=== PATIENT | male | born 1950 | race Hispanic/Latino ===

== ENCOUNTER 2016-12-12 09:40 | Inpatient (IN) | payer OTHER, MEDICARE ==
[2016-12-12 09:45] VITALS: BMI 20.1
--- NOTE | 2016-12-12 10:41 | ED PDOC ---
Arrival/HPI <AmyTerellSushant - Last Filed: 12/12/16 12:04> - General Historian: Patient, Spouse <Michelle Montana PA-C - Last Filed: 12/12/16 12:14> - General Chief Complaint: Cough, Cold, Congestion Time Seen by Provider: 12/12/16 10:01 - History of Present Illness Narrative History of Present Illness (Text): 12/12/16 10:35 Patient with no significant past medical history, reports 3 day h/o dry cough, nausea, decrease in appetite, and overall not feeling well. Otherwise: (-) chest pain, (-) diaphoresis, (-) dyspnea, (-) dizziness, (+) recent travel to 2 weeks ago, (-) rash, (-) sore throat, (-) headache, (-) syncope, (-) abdominal pain, (-) vomiting/diarrhea, (-) urinary symptoms, (+) sick contacts - was ill last month with URI, (-) calf swelling/pain, (-) neuro deficits. Patient adds h/o normal stress test 4 years ago. PMD not on staff (Michelle Montana PA-C) Past Medical History - Provider Review Nursing Documentation Reviewed: Yes - Travel History Have you recently traveled outside [place] w/in the past 3 mons?: Yes - Past History Past History: No Previous - Cardiac Hx Cardiac Disorders: No - Pulmonary Hx Respiratory Disorders: No - Neurological Hx Neurological Disorder: No - HEENT Hx HEENT Disorder: No - Renal Hx Renal Disorder: No - Endocrine/Metabolic Hx Endocrine Disorders: No - Hematological/Oncological Hx Blood Disorders: No - Integumentary Hx Dermatological Disorder: No - Musculoskeletal/Rheumatological Hx Musculoskeletal Disorders: No - Genitourinary/Gynecological Hx Genitourinary Disorders: No - Psychiatric Hx Psychophysiologic Disorder: No Hx Substance Use: No - Surgical History Hx Appendectomy: Yes - Anesthesia Hx Anesthesia: Yes Hx Anesthesia Reactions: No <Michelle Montana PA-C - Last Filed: 12/12/16 12:14> Family/Social History - Physician Review Nursing Documentation Reviewed: Yes Family/Social History: No Known Family HX Smoking Status: Never Smoked Hx Alcohol Use: Yes Frequency of alcohol use: Socially Hx Substance Use: No <Michelle Montana PA-C. - Last Filed: 12/12/16 12:14> Allergies/Home Meds <Sushant Reyes - Last Filed: 12/12/16 12:04> <Michelle Montana PA-C - Last Filed: 12/12/16 12:14> Allergies/Adverse Reactions: Allergies No Known Allergies Allergy (Verified 12/12/16 09:44) Home Medications: Home Meds Medication Instructions Recorded Confirmed Aspirin [Lo-Dose Aspirin EC] 81 mg PO DAILY 12/12/16 12/12/16 Review of Systems - Review of Systems Constitutional: Normal, Fatigue. absent: Weight Change, Fevers, Night Sweats Eyes: Normal. absent: Vision Changes, Photophobia ENT: Normal. absent: Hearing Changes, Tinnitus, Rhinorrhea Respiratory: Normal, Cough. absent: SOB, Sputum, Wheezing Cardiovascular: Normal. absent: Chest Pain, Palpitations, Edema Gastrointestinal: Normal. absent: Abdominal Pain, Stool Changes, Appetite Changes Genitourinary Male: Normal. absent: Dysuria, Frequency, Hematuria Musculoskeletal: Normal. absent: Arthralgias, Back Pain, Neck Pain Skin: Normal. absent: Rash, Pruritis, Skin Lesions Neurological: Normal. absent: Headache, Dizziness, Focal Weakness, Disequilibrium <Michelle Montana PA-C - Last Filed: 12/12/16 12:14> Physical Exam <Sushant Reyes - Last Filed: 12/12/16 12:04> <Michelle Montana PA-C - Last Filed: 12/12/16 12:14> - Physical Exam Narrative Physical Exam (Text): 12/12/16 10:42 GENERAL APPEARANCE: Patient is awake, alert, oriented x 3, in no acute distress. Patient is speaking in full sentences, no respiratory distress, breathing is easy and unlabored. SKIN: Warm, dry; (-) cyanosis. EYES: (-) conjunctival pallor. ENMT: Mucous membranes dry. NECK: (-) tenderness, (-) stiffness, (-) lymphadenopathy, (-) JVD. CHEST AND RESPIRATORY: (-) rash, (-) chest wall tenderness. Lungs: (-) rales , (-) rhonchi, (-) wheezes, (-) rub; breath sounds equal bilaterally. HEART AND CARDIOVASCULAR: (+) tachycardic, (-) irregularity; (-) murmur, (-) gallop, (-) rub. ABDOMEN AND GI: Soft; (-) distention, (-) tenderness, (-) palpable pulsatile mass. EXTREMITIES: (-) deformity; (-) edema, (-) calf tenderness. (+) distal pulses. NEURO AND PSYCH: Mental status as above. Cranial nerves grossly intact; strength symmetric. (Michelle Montana PA-C) Vital Signs Temp Pulse Resp BP Pulse Ox 12/12/16 09:49 98.7 F 118 H 19 114/75 92 L Medical Decision Making <Sushant Reyes - Last Filed: 12/12/16 12:04> <Michelle Montana PA-C - Last Filed: 12/12/16 12:14> ED Course and Treatment: 12/12/16 12:04 Discussed with who will admit to 's service. (Sushant Reyes) 12/12/16 10:43 66 yo M otherwise healthy presents with 3 day history of cough, nausea, decreased appetite and overall not feeling well. Patient is noted to be tachycardic with hypoxia. Admits to recent travel 2 weeks ago, rule out PE, consider pneumonia versus viral illness. Plan: -- Labs -- IV fluids -- Urinalysis -- EKG -- CXR -- O2 -- Reassess and disposition EKG: ST at 118 bpm, with RBBB, as read by TORREY CXR: (+) RML infiltrate, as read by TORREY and ER MD Labs reviewed, WBC is 17, bands 18, lactic acid nl, trop (-), BNP (+), Ddimer (+ ). Patient resting comfortably in bed in no respiratory distress, breathing is easy and unlabored. Diagnostic results d/w the patient, notified of dx of pneumonia, rocephin and zithromax IV ordered. Arrangements made to admit the patient. Patient and his spouse agree with current plan of care and inpatient admission. (Michelle Montana PA-C) - Lab Interpretations Lab Results: 12/12/16 10:30 12/12/16 10:30 Lab Results 12/12/16 11:35: Lactic Acid 1.8 12/12/16 10:30: Sodium 134, Potassium 4.3, Chloride 98, Carbon Dioxide 26, Anion Gap 14, BUN 49 H, Creatinine 1.7 H, Est GFR ( Amer) 49, Est GFR ( Non-Af Amer) 41, Random Glucose 144 H, Calcium 9.3, Total Bilirubin 1.8 H, AST 39, ALT 29, Alkaline Phosphatase 68, Lactate Dehydrogenase 549, Total Creatine Kinase 130, Troponin I < 0.01, NT-Pro-B Natriuret Pep 1160 H, Total Protein 6.9 , Albumin 3.6, Globulin 3.2, Albumin/Globulin Ratio 1.1 12/12/16 10:30: WBC 17.9 H, RBC 4.57, Hgb 14.7, Hct 40.6 L, MCV 88.8, MCH 32.2, MCHC 36.2, RDW 13.7, Plt Count 142, MPV 11.5 H, Neutrophils % (Manual) 69, Band Neutrophils % 18 H*, Lymphocytes % (Manual) 5 L, Monocytes % (Manual) 4, Metamyelocytes % 4 12/12/16 10:30: PT 12.2 H, INR 1.13 H, APTT 36.4 H, D-Dimer, Quantitative 1.72 H - RAD Interpretation Radiology Orders: 12/12/16 10:23 CHEST TWO VIEWS (PA/LAT) [RAD] Stat - Medication Orders Current Medication Orders: Azithromycin (Zithromax 500mg In Ns) 500 mg in 250 mls @ 167 mls/hr IVPB STAT STA PRN Reason: Protocol Stop: 12/12/16 12:54 Last Admin: 12/12/16 12:08 Dose: 167 mls/hr Discontinued Medications Sodium Chloride (Sodium Chloride 0.9%) 500 mls @ 500 mls/hr IV .Q1H STA Stop: 12/12/16 11:44 Last Admin: 12/12/16 10:53 Dose: 500 mls/hr Ceftriaxone Sodium (Rocephin 1 Gram Ivpb) 1 gm in 100 mls @ 200 mls/hr IVPB STAT STA PRN Reason: Protocol Stop: 12/12/16 11:53 Last Admin: 12/12/16 11:36 Dose: 200 mls/hr - PA / DE ICER INSTALLER / Resident Statement SHAWN has examined the patient and agrees with the treatment plan. <Sushant Reyes - Last Filed: 12/12/16 12:04> - PA / DE ICER INSTALLER / Resident Statement SHAWN has reviewed & agrees with the documentation as recorded. <Michelle Montana PA-C - Last Filed: 12/12/16 12:14> Disposition/Present on Arrival <Sushant Reyes - Last Filed: 12/12/16 12:04> - Present on Arrival Any Indicators Present on Arrival: No History of DVT/PE: No History of Uncontrolled Diabetes: No Urinary Catheter: No History of Decub. Ulcer: No History Surgical Site Infection Following: None - Disposition Have Diagnosis and Disposition been Completed?: No Disposition Time: 11:15 Patient Plan: Admission <Michelle Montana PA-C - Last Filed: 12/12/16 12:14> - Disposition Diagnosis: Pneumonia Disposition: HOSPITALIZED Patient Problems: Current Active Problems Problem Status Onset Pneumonia Acute Condition: STABLE Referrals: Bari Wilkins MD, PhD [Primary Care Provider] - Follow up with primary
[2016-12-12] MEDS ORDERED: Sodium Chloride 0.9% 500 ML IV STA (10:45)
[2016-12-12 11:02] LABS: HEMATOCRIT 40.6 % (42.0-52.0); MEAN CELL VOLUME 88.8 fL (80.0-105.0); MEAN CORPUSCULAR HEMOGLOBIN 32.2 pg (25.0-35.0); MEAN CORPUSCULAR HGB CONC 36.2 g/dl (31.0-37.0); MEAN PLATELET VOLUME 11.5 fl (7.0-11.0); PLATELET COUNT 142 10^3/uL (120.0-450.0); RED CELL DISTRIBUTION WIDTH 13.7 % (11.5-14.5); WHITE BLOOD COUNT 17.9 10^3/ul (4.5-11.0)
[2016-12-12 11:09] LABS: ADD MANUAL DIFF? YES
[2016-12-12] MEDS ORDERED: cefTRIAXone 1 gm 1 GM/100 ML BAG IVPB STA (11:24)
[2016-12-12] MEDS ORDERED: Azithromycin 500MG/NS 250ml 500 MG/250 ML BAG IVPB STA (11:25)
[2016-12-12 11:28] LABS: ALB/GLOB RATIO 1.1 (1.1-1.8); ALKALINE PHOSPHATASE 68 U/L (38-133); ALT/SGPT 29 U/L (7-56); AST/SGOT 39 U/L (15-59); BILIRUBIN,TOTAL 1.8 mg/dL (0.2-1.3); BLOOD UREA NITROGEN 49 mg/dL (7-21); CALCIUM 9.3 mg/dL (8.4-10.5); CARBON DIOXIDE 26 mmol/L (21-33); CHLORIDE 98 mmol/L (98-107); GFR AFRICAN-AMERICAN 49; GLUCOSE,RANDOM 144 mg/dL (70-110); POTASSIUM 4.3 mmol/L (3.6-5.0); SODIUM 134 mmol/L (132-148); TOTAL PROTEIN 6.9 g/dL (5.8-8.3)
[2016-12-12 11:41] LABS: TROPONIN I < 0.01 ng/mL
[2016-12-12 11:42] LABS: BAND 18 % (0-2); METAMYELOCYTE 4 %; NEUTROPHIL 69 % (50.0-70.0)
[2016-12-12 12:02] LABS: INR 1.13 (0.93-1.08); PARTIAL THROMBOPLASTIN TIME 36.4 Seconds (23.7-30.8)
[2016-12-12 12:06] LABS: D DIMER 1.72 mg/L FEU (0-0.50)
--- NOTE | 2016-12-12 13:40 | RAD ---
HISTORY: tachycardia COMPARISON: No prior. TECHNIQUE: Chest PA and lateral FINDINGS: LUNGS: Right middle lobe infiltrate. Probable right lower lobe infiltrate as well. PLEURA: No significant pleural effusion identified. No pneumothorax apparent. CARDIOVASCULAR: Normal. OSSEOUS STRUCTURES: No significant abnormalities. VISUALIZED UPPER ABDOMEN: Normal. OTHER FINDINGS: None. IMPRESSION: Right middle lobe and probable right lower lobe pulmonary infiltrates.
[2016-12-12 15:38] LABS: URINE BILIRUBIN NEGATIVE (NEGATIVE); URINE BLOOD MODERATE (NEGATIVE); URINE GLUCOSE (UA) NEGATIVE (NEGATIVE); URINE KETONE NEGATIVE (NEGATIVE); URINE LEUKOCYTE ESTERASE NEGATIVE Leu/uL (NEGATIVE); URINE PROTEIN 100 mg/dL (<30 mg/dL)
[2016-12-12 15:42] LABS: URINE APPEARANCE SL CLOUDY (CLEAR); URINE COLOR YELLOW (YELLOW)
[2016-12-12 16:01] LABS: URINE BACTERIA TRACE (NEG); URINE RBC 0 - 2 /hpf (0-2)
--- NOTE | 2016-12-13 01:32 | CARD ---
APPROVED REPORT EKG Measurement Heart [id number] <Conclusion> Sinus tachycardia Right bundle branch block Left anterior fascicular block Bifascicular block Minimal voltage criteria for LVH, may be normal variant Abnormal ECG
[2016-12-13 06:19] LABS: HEMATOCRIT 38.5 % (42.0-52.0); MEAN CELL VOLUME 88.7 fL (80.0-105.0); MEAN CORPUSCULAR HEMOGLOBIN 31.3 pg (25.0-35.0); MEAN CORPUSCULAR HGB CONC 35.3 g/dl (31.0-37.0); MEAN PLATELET VOLUME 11.3 fl (7.0-11.0)
--- NOTE | 2016-12-13 06:26 | CP.PCM.PN ---
Subjective - Date & Time of Evaluation Date of Evaluation: 12/12/16 Time of Evaluation: 22:15 - Subjective Subjective: called by nurse pt has tachycardia on monitor.pt is admitted for pneomonia . has rectal temp of 102 . pt is given tylenol no other symptoms. Objective - Vital Signs/Intake and Output Vital Signs (last 24 hours): Temp Pulse Resp BP Pulse Ox 101.3 F H 139 H 20 97/69 L 94 L 12/13/16 00:01 12/13/16 00:01 12/13/16 00:01 12/13/16 00:01 12/13/16 00:01 Intake and Output: 12/12/16 12/13/16 18:59 06:59 Intake Total 960 Output Total 350 Balance 610 - Medications Medications: Current Medications Acetaminophen (Tylenol 325mg Tab) 650 mg PO Q4H PRN PRN Reason: Pain, Mild (1-3) Last Admin: 12/12/16 21:13 Dose: 650 mg Aspirin (Ecotrin) 81 mg PO DAILY MARIA LUZ Azithromycin (Zithromax) 250 mg PO DAILY MARIA LUZ PRN Reason: Protocol Ceftriaxone Sodium (Rocephin 1 Gram Ivpb) 1 gm in 100 mls @ 100 mls/hr IVPB DAILY MARIA LUZ PRN Reason: Protocol - Labs Labs: PT 12.2 Seconds (9.9-11.8) H 12/12/16 10:30 INR 1.13 (0.93-1.08) H 12/12/16 10:30 APTT 36.4 Seconds (23.7-30.8) H 12/12/16 10:30 - Constitutional Appears: No Acute Distress - Head Exam Head Exam: NORMOCEPHALIC - Eye Exam Eye Exam: Normal appearance Pupil Exam: PERRL - ENT Exam ENT Exam: Mucous Membranes Moist - Neck Exam Neck Exam: Full ROM - Respiratory Exam Respiratory Exam: Rales Additional comments: pt has rales on rt side. - Cardiovascular Exam Cardiovascular Exam: Tachycardia, RRR, +S1, +S2 - Rectal Exam Rectal Exam: Deferred - Extremities Exam Extremities Exam: Full ROM - Neurological Exam Neurological Exam: Alert, Awake, CN II-XII Intact, Oriented x3 - Psychiatric Exam Psychiatric exam: Normal Affect - Skin Skin Exam: Dry, Warm Assessment and Plan - Assessment and Plan (Free Text) Assessment: sinus tachy cardia secondry to fever . pneumonia rt side. Plan: pt is on antibiotics , pt improved after tylenol.
[2016-12-13] MEDS ORDERED: Sodium Chloride 0.9% 500 ML IV STA (06:48)
[2016-12-13 06:57] LABS: ALKALINE PHOSPHATASE 77 U/L (38-133); ALT/SGPT 30 U/L (7-56); AST/SGOT 39 U/L (15-59); BILIRUBIN,TOTAL 1.4 mg/dL (0.2-1.3); BLOOD UREA NITROGEN 42 mg/dL (7-21); CARBON DIOXIDE 28 mmol/L (21-33); CHLORIDE 101 mmol/L (95-110); GFR AFRICAN-AMERICAN > 60; GLUCOSE,RANDOM 93 mg/dL (70-110); POTASSIUM 3.3 mmol/L (3.6-5.0); SODIUM 138 mmol/L (132-148); TOTAL PROTEIN 6.5 g/dL (5.8-8.3)
[2016-12-13 07:17] LABS: ARTERIAL BLOOD GAS HCO3 23.8 mmol/L (21-28); ARTERIAL BLOOD GAS O2 CAPACITY 17.8 mL/dl (16-24); ARTERIAL BLOOD GAS O2 CONTENT 17.5 ML/dl (15-23); ARTERIAL BLOOD GAS PH 7.48 (7.35-7.45); ARTERIAL BLOOD HGB O2 SAT 95.6 % (95.0-98.0); CARBOXYHEMOGLOBIN 1.8 % (0.5-1.5); HHB 1.8 % (0-5); METHEMOGLOBIN 0.8 % (0.0-3.0)
[2016-12-13 07:51] LABS: T4 7.4 ug/dL (5.5-11.0)
[2016-12-13 08:05] LABS: THYROID STIMULATING HORMONE 1.59 mIU/mL (0.46-4.68)
[2016-12-13] MEDS: cefTRIAXone 1 gm 1 GM/100 ML BAG IVPB SCH (10:28)
[2016-12-13] MEDS: Sodium Chloride 0.9% 1,000 ML IV SCH (10:29)
[2016-12-13 12:21] LABS: CHOLESTEROL 109 mg/dL (130-200)
--- NOTE | 2016-12-13 12:36 | HP ---
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 He states he and his visited [place] almost a month ago and both have been congested, but he was not feeling well for the last 3-4 days. He started to have fever, chills and started to have cough and congestion. He w ent to [facility] Urgent care, where when they checked him out, he was found to be having tachycardia with hypoxia, so he was directed to come to Emergency Room for further evaluation. He denies any chest p ain. However, he has generalized weakness, cough and congestion with productive cough. Denies any n ausea or vomiting, no abdominal pain. PAST MEDICAL HISTORY: Significant for borderline hypertension. He states he had a stress test done many years ago and was found to be unremarkable. He never had a history of pneumonia in the past. ALLERGIES: He is not allergic to any medication. MEDICATION AT HOME: He is on aspirin 81 daily. SOCIAL HISTORY: He is . He used to be a heavy smoker, almost 1 pack a day for 15 years, but he quit 30 years ago. Denies alcohol use, only drinks socially. PHYSICAL EXAMINATION: GENERAL: He is awake and alert, communicative. VITAL SIGNS: He is afebrile, pulse 64, respirations 20, blood pressure 116/72. LUNGS: Bilateral lower and middle lung soft crackles. HEART: S1, S2 audible, irregular, tachycardic. ABDOMEN: Soft, nontender, no rebound, no guarding. NEUROLOGIC: The patient is awake and alert, communicative. Moves all extremities. LABORATORY EXAMINATION: WBCs 11, hemoglobin 13.6, hematocrit 38.5, platelets of 128. Chemistry: So dium 138, potassium 3.3, chloride 101, CO2 28, BUN 42, creatinine 1.2, blood sugar of 93. Total bili 1.4. BNP 1160. Urinalysis shows moderate blood and his blood cultures, 2 bottles are positive for gram-positive cocci. Urine cultures are negative. X-ray of the chest shows bilateral infiltrate, ri ght middle lobe and right lower lobe infiltrate. ASSESSMENT: 1. Bilateral pneumonia, community acquired. 2. New onset atrial fibrillation. 3. Tachycardia. 4. Leukocytosis, improving. 5. Renal insufficiency, improving. PLAN: Currently, he has been started on metoprolol. He was given 1 dose of 25 around 10:00. His po tassium is being supplemented. He is on Rocephin. He is getting vancomycin and Zithromax. Will ord er for echocardiogram. Will monitor CBC, CMP, lipid profile and thyroid profile in a.m. Cardiology consult by Dr. Pendleton has been requested. Discussed with patient. He seemed to agree with the plan. Will reevaluate patient in a.m. Shaggy Harris MD cc: [phone] TT: 12/13/2016 12:35:47 en
--- NOTE | 2016-12-13 14:22 | CP.PCM.CON ---
History of Present Illness - History of Present Illness History of Present Illness: 66 year old male with PMH of HTN came in to [facility] complaining of dry cough associated with anorexia, nausea and malaise for the past 3-4 days. He was also found to have fever in the ED. He was recently just in the [place] about 2 weeks ago but does not recall any specific ill contacts there, although her was apparently sick with a probable viral upper respiratory illness. He denies sore throat, no vomiting, no chest pain, no SOB, no headache or dizziness, no diarrhea, no hematuria, no dysuria. In the ED, CXR was done which showed right middle and lower lobe infiltrates and his blood cx is now showing gram positive cocci in pairs. Infectious Diseases consult is requested to further evaluate and manage. Review of Systems - Review of Systems All systems: reviewed and no additional remarkable complaints except (as per HPI ) Past Patient History - Past Social History Smoking Status: Never Smoked - CARDIAC Hx Cardiac Disorders: No - PULMONARY Hx Respiratory Disorders: No - NEUROLOGICAL Hx Neurological Disorder: No - HEENT Hx HEENT Problems: No - RENAL Hx Chronic Kidney Disease: No - ENDOCRINE/METABOLIC Hx Endocrine Disorders: No - HEMATOLOGICAL/ONCOLOGICAL Hx Blood Disorders: No - INTEGUMENTARY Hx Dermatological Problems: No - MUSCULOSKELETAL/RHEUMATOLOGICAL Hx Falls: No - GENITOURINARY/GYNECOLOGICAL Hx Genitourinary Disorders: No - PSYCHIATRIC Hx Psychophysiologic Disorder: No - SURGICAL HISTORY Hx Appendectomy: Yes - ANESTHESIA Hx Anesthesia: Yes Hx Anesthesia Reactions: No Meds Allergies/Adverse Reactions: Allergies Allergy/AdvReac Type Severity Reaction Status Date / Time No Known Allergies Allergy Verified 12/12/16 09:44 - Medications Medications: Current Medications Acetaminophen (Tylenol 325mg Tab) 650 mg PO Q4H PRN PRN Reason: Pain, Mild (1-3) Last Admin: 12/12/16 21:13 Dose: 650 mg Aspirin (Ecotrin) 81 mg PO DAILY MARIA LUZ Last Admin: 12/13/16 10:27 Dose: 81 mg Azithromycin (Zithromax) 250 mg PO DAILY MARIA LUZ PRN Reason: Protocol Last Admin: 12/13/16 10:27 Dose: 250 mg Ceftriaxone Sodium (Rocephin 1 Gram Ivpb) 1 gm in 100 mls @ 100 mls/hr IVPB DAILY MARIA LUZ PRN Reason: Protocol Last Admin: 12/13/16 10:28 Dose: 100 mls/hr Sodium Chloride (Sodium Chloride 0.9%) 1,000 mls @ 100 mls/hr IV .Q10H [facility] Last Admin: 12/13/16 10:29 Dose: 100 mls/hr Potassium Chloride (Potassium Chloride 10 Meq/100 Ml) 10 meq in 100 mls @ 100 mls/hr IVPB Q2H [facility] Stop: 12/13/16 13:59 Vancomycin HCl (Vancomycin 1gm) 250 mls @ 167 mls/hr IVPB Q12H [facility] PRN Reason: Protocol Stop: 12/20/16 11:31 Metoprolol Tartrate (Lopressor) 25 mg PO BID [facility] Last Admin: 12/13/16 10:28 Dose: 25 mg Physical Exam - Constitutional Appears: Non-toxic, No Acute Distress - Head Exam Head Exam: NORMAL INSPECTION - ENT Exam ENT Exam: Mucous Membranes Moist - Neck Exam Neck exam: Negative for: Lymphadenopathy, Meningismus - Respiratory Exam Respiratory Exam: Decreased Breath Sounds, Rales (crackles on the right side) - Cardiovascular Exam Cardiovascular Exam: +S1, +S2 - GI/Abdominal Exam GI & Abdominal Exam: Soft. absent: Tenderness Results - Vital Signs Recent Vital Signs: Last Vital Signs Temp 98.3 F 12/13/16 06:00 Pulse 135 H 12/13/16 10:28 Resp 20 12/13/16 06:00 BP 116/72 12/13/16 10:28 Pulse Ox 96 12/13/16 06:00 - Labs Result Diagrams: 12/13/16 06:00 12/13/16 06:00 Labs: Laboratory Results - last 24 hr 12/12/16 12/13/16 12/13/16 13:02 06:00 06:00 WBC 11.0 D RBC 4.34 Hgb 13.6 L Hct 38.5 L MCV 88.7 MCH 31.3 MCHC 35.3 RDW 14.0 Plt Count 128 MPV 11.3 H pCO2 pO2 HCO3 ABG pH ABG Total CO2 ABG O2 Saturation ABG O2 Content ABG Base Excess ABG Hemoglobin ABG Carboxyhemoglobin POC ABG HHb (Measured) ABG Methemoglobin ABG O2 Capacity Hgb O2 Saturation FiO2 Sodium 138 Potassium 3.3 L Chloride 101 Carbon Dioxide 28 Anion Gap 12 BUN 42 H Creatinine 1.2 Est GFR ( Amer) > 60 Est GFR (Non-Af Amer) > 60 Random Glucose 93 Calcium 9.0 Total Bilirubin 1.4 H AST 39 ALT 30 Alkaline Phosphatase 77 Total Protein 6.5 Albumin 3.2 Globulin 3.3 Albumin/Globulin Ratio 1.0 L Thyroxine (T4) TSH 3rd Generation Urine Color Yellow Urine Appearance Sl cloudy Urine pH 6.0 Ur Specific Parker 1.025 Urine Protein 100 H Urine Glucose (UA) Negative Urine Ketones Negative Urine Blood Moderate H Urine Nitrate Negative Urine Bilirubin Negative Urine Urobilinogen 2.0 H Ur Leukocyte Esterase Negative Urine RBC 0 - 2 Urine WBC 1 - 3 Ur Epithelial Cells 1 - 3 Urine Bacteria Trace Hyaline Casts 0 - 2 12/13/16 12/13/16 07:00 07:10 WBC RBC Hgb Hct MCV MCH MCHC RDW Plt Count MPV pCO2 32 L pO2 76.0 L HCO3 23.8 ABG pH 7.48 H ABG Total CO2 24.8 ABG O2 Saturation 98.2 H ABG O2 Content 17.5 ABG Base Excess 0.9 ABG Hemoglobin 13.0 ABG Carboxyhemoglobin 1.8 H POC ABG HHb (Measured) 1.8 ABG Methemoglobin 0.8 ABG O2 Capacity 17.8 Hgb O2 Saturation 95.6 FiO2 30.0 Sodium Potassium Chloride Carbon Dioxide Anion Gap BUN Creatinine Est GFR ( Amer) Est GFR (Non-Af Amer) Random Glucose Calcium Total Bilirubin AST ALT Alkaline Phosphatase Total Protein Albumin Globulin Albumin/Globulin Ratio Thyroxine (T4) 7.4 TSH 3rd Generation 1.59 Urine Color Urine Appearance Urine pH Ur Specific Parker Urine Protein Urine Glucose (UA) Urine Ketones Urine Blood Urine Nitrate Urine Bilirubin Urine Urobilinogen Ur Leukocyte Esterase Urine RBC Urine WBC Ur Epithelial Cells Urine Bacteria Hyaline Casts Assessment & Plan - Assessment and Plan (Free Text) Plan: Assessment Severe sepsis with acute renal failure (improving) due to right middle and lower lobe community-acquired pneumonia with associated gram positive cocci in pairs bacteremia HTN Plan patient on Rocephin and Zithromax - will also add Vancomycin and will monitor renal function; will follow up identification and sensitivities of the gram positive cocci in the blood; will repeat blood cx will monitor clinical response
[2016-12-13] MEDS: Vancomycin 1gm in NS 250ml 1 GM/250 ML BAG IVPB SCH ×2 (15:20→21:05)
--- NOTE | 2016-12-13 19:54 | CARD ---
APPROVED REPORT EXAM: Two-dimensional and M-mode echocardiogram with Doppler and color Doppler. INDICATION LV Function:SystolicDiastolic 2D DIMENSIONS Left Atrium (2D)3.7 (1.6-4.0cm)IVSd1.0 (0.7-1.1cm) LVDd4.9 (3.9-5.9cm)PWd1.0 (0.7-1.1cm) LVDs4.0 (2.5-4.0cm)FS (%) 19.3 % LVEF (%)39.6 (>50%) M-Mode DIMENSIONS Aortic Root2.90 (2.2-3.7cm)Aortic Cusp Exc.2.00 (1.5-2.0cm) Aortic Valve AoV Peak Cvbtukfg428.0cm/Jose Peak GR.9mmHg Mitral Valve E/A ratio0.0 TDI E/Lateral E'0.0E/Medial E'0.0 Tricuspid Valve TR Peak [id number] [id number] Peak Gr.39mmHg [id number] LEFT VENTRICLE The left ventricle is normal size. There is normal left ventricular wall thickness. The systolic function is mildly impaired.EF-40-45% There is mild global hypokinesis of the left ventricle.( A fib) A fib No left ventricle thrombus noted on this study. There is no ventricular septal defect visualized. There is no left ventricular aneurysm. There is no mass noted in the left ventricle. RIGHT VENTRICLE The right ventricle is mildly dilated. There is normal right ventricular wall thickness. Systolic function is mildly reduced. ATRIA The left atrium size is normal. The right atrium size is normal. The interatrial septum is intact with no evidence for an atrial septal defect. AORTIC VALVE The aortic valve is calcified but opens well. There is trace to mild aortic regurgitation. There is no aortic valvular stenosis. There is no aortic valvular vegetation. MITRAL VALVE The mitral valve is thickened but opens well. Mitral regurgitation is mild to moderate. There is no mitral valve stenosis. There is no evidence of mitral valve prolapse. TRICUSPID VALVE The tricuspid valve leaflets are thickened , but open well. There is moderate tricuspid regurgitation.RVSP-49 mmof hg. There is no tricuspid valve stenosis. There is no tricuspid valve prolapse or vegetation. PULMONIC VALVE The pulmonic valve is mildly thickened. There is mild pulmonic valvular regurgitation. There is no pulmonic valvular stenosis. GREAT VESSELS The aortic root is normal in size. The ascending aorta is normal in size. The pulmonary artery is normal. The IVC is normal in size and collapses >50% with inspiration. PERICARDIAL EFFUSION There is no pleural effusion. There is no pericardial effusion. <Conclusion> The left ventricle is normal size. There is normal left ventricular wall thickness. The systolic function is mildly impaired.EF-40-45% There is mild global hypokinesis of the left ventricle.( A fib) A fib There is trace to mild aortic regurgitation. Mitral regurgitation is mild to moderate. There is moderate tricuspid regurgitation.RVSP-49 mmof hg. The IVC is normal in size and collapses >50% with inspiration. There is no pericardial effusion. No Vegetation or thrombus noted.
[2016-12-13] MEDS ORDERED: Metoprolol 1 mg/ml Inj IVP ONE (19:58)
[2016-12-13] MEDS: Enoxaparin 80 mg Syringe SC SCH (21:04)
[2016-12-13] MEDS: diltiaZEM IVPB 100mg in NS 100 ML IV PRN (21:05)
[2016-12-14] MEDS: Sodium Chloride 0.9% 1,000 ML IV SCH (05:53)
[2016-12-14] MEDS: diltiaZEM IVPB 100mg in NS 100 ML IV PRN (05:53)
--- NOTE | 2016-12-14 08:02 | CON ---
DATE: 12/13/2016 REASON FOR CONSULTATION AND FOLLOWUP: AFib, admitted with pneumonia. BRIEF CLINICAL HISTORY: This is a 66-year-old male with a past medical history significant for arrhy thmia. Told that the patient gets paroxysmal in question) ____. Being followed by his PMD outside a nd had a stress test 5-6 years ago after being referred; found to be told negative. Had echo on ' Day and told was negative, but he was told that his heart sometimes goes fast, and did not pres cribe any medication. Recently visited [place] and came back, and found to have mild shortness o f breath so went to the [facility] where he was found to be hypoxemic and tachycardic, so patient was sent to the ER, admitted with possible pneumonia. The patient was in sinus tachycardi a with a burst at 50, so cardiology consult was called. The patient denies any chest pain, shortness of breath, any palpitation. PAST MEDICAL HISTORY: Significant for arrhythmia, paroxysmal atrial fibrillation. MEDICATIONS: Not on any medication. SOCIAL HISTORY: Quit smoking 30 years ago. Denies any history of alcohol abuse, though drinks [employer]. PAST SURGICAL HISTORY: Significant for appendectomy at the age of 13. CURRENT MEDICATIONS: Only taking aspirin. REVIEW OF SYSTEMS: As per HPI. PHYSICAL EXAMINATION: VITAL SIGNS: Temperature afebrile, heart rate 106, blood pressure 105/66. HEENT: PERRLA. Extraocular muscles intact. NECK: Supple. No carotid bruits. No thyromegaly. CHEST: Clear to auscultation. HEART: S1, S2 regular. ABDOMEN: Soft. EXTREMITIES: Clubbing and cyanosis negative. BLOOD WORKUP: As follows: WBC 11.0, hemoglobin 13.6, hematocrit 38.5, platelet count 128. Chemistr y shows sodium 130, potassium 3.6, chloride 101, carbon dioxide 28, anion gap of 12, BUN 42, creatini ne 1.2. TSH 1.59. Triglycerides 323, cholesterol 109, LDL less than 30, HDL 14. IMPRESSION: Paroxysmal atrial fibrillation, history of known arrhythmia, history of ex-tobacco abuse , admitted with pneumonia. RECOMMENDATIONS: Start low dose beta anthony and give p.r.n. verapamil. Echo to assess LV function. A stress test 5 years ago was negative. Now patient admitted with pneumonia. Suggest a stress petros t later as an outpatient to see the effect of stress on rhythm. Interim, will start low dose beta bl ocker and get echo to assess LV function. We will follow with you. Thank you, Dr. Harris, for providing the opportunity in taking care of this patient. Will get hemog lobin A1c also. Jesús Pendleton MD cc: [id number] TT: 12/13/2016 17:47:39 Confirmation # [id number] Dictation # [id number]
[2016-12-14 08:23] LABS: ALKALINE PHOSPHATASE 113 U/L (38-133); ALT/SGPT 38 U/L (7-56); AST/SGOT 62 U/L (15-59); BILIRUBIN,TOTAL 1.4 mg/dL (0.2-1.3); BLOOD UREA NITROGEN 29 mg/dL (7-21); CARBON DIOXIDE 25 mmol/L (21-33); CHLORIDE 105 mmol/L (98-107); GFR AFRICAN-AMERICAN > 60; GLUCOSE,RANDOM 93 mg/dL (70-110); MAGNESIUM 2.1 mg/dL (1.7-2.2); PHOSPHOROUS 2.8 mg/dL (2.5-4.5); POTASSIUM 4.1 mmol/L (3.6-5.0); SODIUM 138 mmol/L (132-148); TOTAL PROTEIN 6.5 g/dL (5.8-8.3)
[2016-12-14 08:30] LABS: FREE T4 1.47 ng/dL (0.78-2.19)
[2016-12-14 08:44] LABS: THYROID STIMULATING HORMONE 1.68 mIU/mL (0.46-4.68)
[2016-12-14] MEDS: Enoxaparin 80 mg Syringe SC SCH (09:19)
[2016-12-14] MEDS: cefTRIAXone 1 gm 1 GM/100 ML BAG IVPB SCH (09:31)
[2016-12-14] MEDS: Vancomycin 1gm in NS 250ml 1 GM/250 ML BAG IVPB SCH ×2 (10:36→22:53)
[2016-12-14] MEDS ORDERED: Digoxin 500 mcg/2ml (0.5 mg/2ml) Inj IVP ONE ×2 (11:12→17:00)
--- NOTE | 2016-12-14 11:53 | PN ---
DATE: 12/14/2016 REASON FOR CONSULTATION AND FOLLOWUP: Atrial fibrillation, apparently is paroxysmal, admitted with farhana bryant. BRIEF CLINICAL HISTORY: A 66-year-old male with past medical history significant for arrhythmia, zi d that the patient gets paroxysmal, being told by head of science, but not on any anticoagulation, being followed by an outside head of science and also his stress test 5-6 years ago was negative. Recent ech o on the was told everything was negative, admitted yesterday with pneumonia, also found to be in paroxysmal atrial fibrillation. Last event of A-fib with rapid ventricular rate, started o n IV Cardizem. The patient underwent echo that shows decreased LV function, mitral regurg, tricuspid regurg, aortic regurgitation, ejection fraction 40-45%, but patient denies any dyspnea on exertion o r chest pain on exertion. Denies any history of alcohol abuse, says he is very active. No complaint of chest pain in the past. Denies any history of recent flu-like symptoms, but he said that he rece ntly visited [place] a month ago and was feeling jazmine there. PHYSICAL EXAMINATION: VITAL SIGNS: Temperature afebrile, heart rate of 120, blood pressure 119/65. HEENT: PERRLA. Extraocular muscles intact. NECK: Supple. No carotid bruits. No thyromegaly. CHEST: Clear to auscultation. HEART: S1, S2 irregular. ABDOMEN: Soft. EXTREMITIES: Clubbing and cyanosis negative. LABORATORY DATA: Blood workup as follows: WBC 11, hemoglobin 13.7, hematocrit 38.5, platelet count 128. Chemistry shows sodium 130, potassium 4.2, chloride 105, carbon dioxide 25, anion gap of 12, BU N 25, creatinine 0.6. TSH 1.59, triglycerides 325, cholesterol 109, LDL 30, HDL 14. IMPRESSION: Right middle lobe and probable right lower lobe pneumonia. No definite history of coron jo artery disease in the past, history of a stress test 5 years ago according to paces normal. Rece nt echo was normal, but history of arrhythmia, was not on any medication. Mitral regurgitation, tric uspid regurgitation. By echo, ejection fraction 45-50%, trace to mild aortic regurgitation, moderate tricuspid regurgitation, mild to moderate mitral regurgitation, right ventricular systolic pressure of 49. Atrial fibrillation with rapid ventricular rate, on Cardizem, started Lovenox last night. RECOMMENDATION: Continue Cardizem. Add low dose beta anthony. We will give 2 doses of digoxin to c ontrol the rate. When the rate is controlled and stabilized hemodynamically, consider cardiac cathet erization, probably in a day or 2, or Tuesday. Discussed with the patient. Continue broad s pectrum antibiotic. The patient is still short of breath secondary to A-fib as well as underlying pn eumonia. We will repeat the chest x-ray, PA and lateral, in the morning. We will follow with you. Will keep a negative fluid balance. Further recommendation depending on hospital course. We will fo llow with you. Thank you, Dr. Harris, for providing us the opportunity in taking care of the patient. Discussed wi th the , discussed with the patient himself. Jseús Pendleton MD cc: [id number] TT: 12/14/2016 11:52:24 Confirmation # [id number] Dictation # [id number]
--- NOTE | 2016-12-14 12:40 | CARD ---
APPROVED REPORT EKG Measurement Heart [id number] <Conclusion> Atrial fibrillation with rapid ventricular response Right bundle branch block Left anterior fascicular block Bifascicular block Minimal voltage criteria for LVH, may be normal variant Abnormal ECG
[2016-12-14 18:03] VITALS: PULSE 131
--- NOTE | 2016-12-14 18:59 | CP.PCM.PN ---
Subjective - Date & Time of Evaluation Date of Evaluation: 12/14/16 Time of Evaluation: 10:50 - Subjective Subjective: Patient is feeling better, no fevers overnight, breathing better, no cough currently. No diarrhea, no nausea. Objective - Vital Signs/Intake and Output Vital Signs (last 24 hours): Temp Pulse Resp BP Pulse Ox 97.8 F 104 H 20 125/58 L 98 12/14/16 12:00 12/14/16 18:00 12/14/16 12:00 12/14/16 18:00 12/14/16 06:00 Intake and Output: 12/14/16 12/14/16 06:59 18:59 Intake Total 1960 680 Output Total 600 600 Balance 1360 80 - Medications Medications: Current Medications Acetaminophen (Tylenol 325mg Tab) 650 mg PO Q4H PRN PRN Reason: Pain, Mild (1-3) Last Admin: 12/12/16 21:13 Dose: 650 mg Aspirin (Ecotrin) 81 mg PO DAILY [facility] Last Admin: 12/14/16 09:25 Dose: 81 mg Azithromycin (Zithromax) 250 mg PO DAILY [facility] PRN Reason: Protocol Last Admin: 12/14/16 09:25 Dose: 250 mg Diltiazem HCl (Cardizem) 60 mg PO TID [facility] Last Admin: 12/14/16 18:00 Dose: 60 mg Enoxaparin Sodium (Lovenox) 70 mg SC Q12H [facility] PRN Reason: Protocol Last Admin: 12/14/16 09:19 Dose: 70 mg Ceftriaxone Sodium (Rocephin 1 Gram Ivpb) 1 gm in 100 mls @ 100 mls/hr IVPB DAILY [facility] PRN Reason: Protocol Last Admin: 12/14/16 09:31 Dose: 100 mls/hr Sodium Chloride (Sodium Chloride 0.9%) 1,000 mls @ 100 mls/hr IV .Q10H [facility] Last Admin: 12/14/16 05:53 Dose: 100 mls/hr Vancomycin HCl (Vancomycin 1gm) 1 gm in 250 mls @ 167 mls/hr IVPB Q12H [facility] PRN Reason: Protocol Stop: 12/20/16 11:31 Last Admin: 12/14/16 10:36 Dose: 167 mls/hr Metoprolol Tartrate (Lopressor) 25 mg PO BID [facility] Last Admin: 12/14/16 17:59 Dose: 25 mg - Labs Labs: 12/13/16 06:00 12/14/16 06:05 PT 12.2 Seconds (9.9-11.8) H 12/12/16 10:30 INR 1.13 (0.93-1.08) H 12/12/16 10:30 APTT 36.4 Seconds (23.7-30.8) H 12/12/16 10:30 - Constitutional Appears: Non-toxic, No Acute Distress - Head Exam Head Exam: NORMAL INSPECTION - Neck Exam Neck Exam: absent: Lymphadenopathy, Meningismus - Respiratory Exam Respiratory Exam: Decreased Breath Sounds - Cardiovascular Exam Cardiovascular Exam: +S1, +S2 - GI/Abdominal Exam GI & Abdominal Exam: Soft. absent: Tenderness Assessment and Plan - Assessment and Plan (Free Text) Plan: Assessment Severe sepsis with acute renal failure (improving) due to right middle and lower lobe community-acquired pneumonia with associated Strep bacteremia HTN Plan patient on Rocephin and Zithromax and Vancomycin day 2 and will continue to monitor renal function; will follow up sensitivities of the Strep in the blood; follow up repeat blood cx will continue to monitor clinical response
--- NOTE | 2016-12-14 21:29 | PN ---
DATE: 12/14/2016 The patient is 66 years old, seen and examined, sitting in chair, comfortable. He had episode of tac hycardia. Otherwise, he denies any cough and congestion. No fever, no chills. PHYSICAL EXAMINATION: VITAL SIGNS: He is afebrile, pulse 89, pulse 69 earlier and after it was 96, respirations 20, blood pressure 110/66. LUNGS: Bilateral fair air flow, decreased at bases. HEART: S1, S2 audible. Irregular rate control. ABDOMEN: Soft, nontender, no rebound, no guarding. NEUROLOGIC: The patient is awake and alert, communicative, ambulatory. LABORATORY DATA: Blood cultures positive for Streptococcus species. Repeat cultures are negative. ASSESSMENT: 1. New onset of atrial fibrillation. 2. Community-acquired pneumonia. 3. Hypertension. 4. Leukocytosis, improving. 5. Renal insufficiency, improved. 6. Positive procalcitonin. PLAN: The patient is holding his blood pressure. We will discontinue his IV Diltiazem. We will con tinue him on Cardizem 60 t.i.d. He is on digoxin. He is getting metoprolol. He is on Lovenox. We will continue him on Rocephin and Zithromax. We will reevaluate the patient in a.m. Shaggy Harris MD cc: [phone] TT: 12/14/2016 21:29:18 Confirmation # [id number] Dictation # [id number]
[2016-12-15] MEDS: Enoxaparin 80 mg Syringe SC SCH ×3 (01:01→21:39)
[2016-12-15] MEDS: Sodium Chloride 0.9% 1,000 ML IV SCH (01:04)
[2016-12-15 07:45] LABS: ADD MANUAL DIFF? NO
[2016-12-15 08:04] LABS: BASO # 0.02 K/mm3 (0.0-2.0); BASO % 0.3 % (0.0-3.0); EOS # 0.1 (0.0-0.7); EOS % 1.2 % (1.5-5.0); GRAN # 5.76 (1.4-6.5); HEMATOCRIT 36.5 % (42.0-52.0); LYMPH # 0.9 (1.2-3.4); LYMPH % 11.9 % (22.0-35.0); MEAN CORPUSCULAR HEMOGLOBIN 31.3 pg (25.0-35.0); MEAN CORPUSCULAR HGB CONC 35.6 g/dl (31.0-37.0); MEAN PLATELET VOLUME 11.3 fl (7.0-11.0); MONO # 0.9 (0.1-0.6); MONO % 11.6 % (1.0-6.0); PLATELET COUNT 158 10^3/uL (120.0-450.0); RED CELL DISTRIBUTION WIDTH 13.9 % (11.5-14.5); WHITE BLOOD COUNT 7.7 10^3/ul (4.5-11.0)
[2016-12-15 08:07] LABS: ALKALINE PHOSPHATASE 150 U/L (38-133); ALT/SGPT 52 U/L (7-56); AST/SGOT 60 U/L (15-59); BILIRUBIN,TOTAL 1.1 mg/dL (0.2-1.3); BLOOD UREA NITROGEN 22 mg/dL (7-21); CALCIUM 8.8 mg/dL (8.4-10.5); CARBON DIOXIDE 28 mmol/L (21-33); CHLORIDE 104 mmol/L (98-107); GFR AFRICAN-AMERICAN > 60; GLUCOSE,RANDOM 92 mg/dL (70-110); MAGNESIUM 1.9 mg/dL (1.7-2.2); POTASSIUM 3.2 mmol/L (3.6-5.0); SODIUM 139 mmol/L (132-148); TOTAL PROTEIN 6.4 g/dL (5.8-8.3)
[2016-12-15] MEDS ORDERED: Potassium Chloride 20 mEq ER Tab PO ONE ×2 (09:03→13:00)
--- NOTE | 2016-12-15 10:34 | PN ---
DATE: 12/15/2016 REASON FOR CONSULTATION AND FOLLOWUP: Atrial fibrillation, apparently paroxysmal, admitted with schuyler mcgee, CHF. BRIEF CLINICAL HISTORY: A 66-year-old male with past medical history significant for arrhythmia, zi d that the patient gets paroxysmal by his asset management lead, but never been on anticoagulation or any medi cation to control the heart rate since 5-6 years ago. Stress test 5-6 years ago was negative, and re cent echo on , was told everything was okay, admitted at this time with pneumonia, found to be in paroxysmal atrial fibrillation. The patient underwent echocardiography that showed decrease d LV function, as well as regurgitation of the valve noted. The patient denies any history of alcohol abuse in the past. Denies any history of flu-like symptoms , but says he recently visited [place] a month ago and was feeling sick at that time. No history of alcohol abuse. Ejection fraction by echo was 40-45%. The patient yesterday appeared congested given 1 dose of Lasix, went multiple times to the bathroom a nd feels a lot better. Was on IV Cardizem - changed to p.o. Cardizem, but still the heart rate is 11 2 though the patient got 2 doses of digoxin as well. PHYSICAL EXAMINATION: VITAL SIGNS: Temperature afebrile, heart rate 112, blood pressure 142/82. HEENT: PERRLA. Extraocular muscles intact. NECK: Supple. No carotid bruits. No thyromegaly. CHEST: Clear to auscultation. HEART: S1, S2 regular. ABDOMEN: Soft. EXTREMITIES: Clubbing and cyanosis negative. LABORATORY DATA: Blood workup as follows: WBC 7.7, hemoglobin 13, hematocrit 36.5, platelet count 1 58. Chemistry shows sodium 130, potassium 3.____, chloride 101, carbon dioxide 28, anion gap of 12, BUN 42, creatinine 1.2. IMPRESSION: Community-acquired pneumonia, congestive heart failure secondary to systolic dysfunction , ejection fraction 40-45%, hypokalemia, atrial fibrillation with rapid rate off Cardizem, on p.o. Ca rdizem. Repeat echo because the patient had on outside. Repeat echo was done yesterda y that showed ejection fraction of 40-45%, global hypokinesis of left ventricle, atrial fibrillation, trace to mild aortic regurgitation, mild to moderate mitral regurgitation, moderate tricuspid regurg itation, right ventricular systolic pressure of 49. Apparently, it looks like new decreased left jamir tricular function because the patient claims that on [place] Day he had echo and was told negative. Congestive heart failure, multifactorial, secondary to cardiomyopathy, systolic dysfunction as well as atrial fibrillation with moderate to high rate, pneumonia. RECOMMENDATION: Repeat chest x-ray. We will change Cardizem to verapamil to control better rate bec ause of COPD, supplement potassium. We will start low with the Plavix, aspirin, discontinue Lovenox after today's night dose, and cardiac catheterization tomorrow. Keep n.p.o. after midnight for a car diac catheterization tomorrow. Discussed with the patient, discussed with the - agreed. We tobin l proceed for cardiac catheterization. Now the patient can lie flat. The patient had initial admission, renal insufficiency as well, which has now improved. So we will do, when the renal function improves, and we will discontinue IV fluid now. Thank you, Dr. Harris, for the opportunity in taking care of the patient. We will restart fluid sandra orrow at 7:00 a.m., preparation for cardiac catheterization, now for discontinuing IV fluid to preven t going into congestive heart failure. ____ function with IV fluid, renal function improved, and it is optimum time to do the cardiac catheterization tomorrow. Now the patient to lie flat on the cath stable. Jesús Pendleton MD cc:Shaggy Harris MD [phone] TT: 12/15/2016 10:33:23 Confirmation # [id number] Dictation # [id number] patricia
[2016-12-15] MEDS: cefTRIAXone 1 gm 1 GM/100 ML BAG IVPB SCH (13:27)
--- NOTE | 2016-12-15 15:08 | RAD ---
HISTORY: F/U pneumonia and compare COMPARISON: 12/12/2016 TECHNIQUE: Chest PA and lateral FINDINGS: LUNGS: There is slight improvement in the dense alveolar infiltrate in the right middle lobe. The infiltrate is best appreciated on the lateral film PLEURA: No significant pleural effusion identified. No pneumothorax apparent. CARDIOVASCULAR: Normal. OSSEOUS STRUCTURES: No significant abnormalities. VISUALIZED UPPER ABDOMEN: Normal. OTHER FINDINGS: None. IMPRESSION: Slight improvement in right middle lobe pneumonia
--- NOTE | 2016-12-15 18:45 | PN ---
DATE: 12/15/2016 SUBJECTIVE: The patient is a 66-year-old, seen and examined, sitting in chair, still having intermit tent AFib and went into rapid rate. No cough, no congestion, no fever, no chills. PHYSICAL EXAMINATION: VITAL SIGNS: He is afebrile, pulse 94, respirations 20, blood pressure 138/74. LUNGS: Bilateral fair air flow, decreased at bases. HEART: S1, S2 audible. ABDOMEN: Soft, nontender, no rebound, no guarding. NEUROLOGIC: He is awake and alert, communicative. LABORATORY: WBC 7.7, hemoglobin 13, hematocrit 36, platelets 158. Chemistry: Sodium 139, potassium 3.2, chloride 104, CO2 of 28, BUN 22, creatinine 0.8, blood sugar of 92. His AST is 60, alkaline ph osphatase is 150. His blood cultures grew Streptococcus pneumoniae, sensitive to Rocephin. ASSESSMENT: 1. Streptococcus pneumoniae bacteremia. 2. Bilateral pneumonia. 3. Atrial fibrillation. 4. Hypertension. PLAN: The patient is currently on Lovenox. His Eliquis has been discontinued. His potassium is sup plemented. He is on verapamil 80 mg 3 times a day. He is on digoxin. He is on metoprolol 25 b.i.d. He was given a loading dose of Plavix 300 daily. Scheduled for cardiac cath in a.m. Shaggy Harris MD cc: [phone] TT: 12/15/2016 18:44:40 Confirmation # [id number] Dictation # [id number] mukesh
--- NOTE | 2016-12-15 22:33 | CP.PCM.PN ---
Subjective - Date & Time of Evaluation Date of Evaluation: 12/15/16 Time of Evaluation: 11:15 - Subjective Subjective: Developed some redness on the back after Vancomycin infusion. Feeling better, afebrile, not in distress. Objective - Vital Signs/Intake and Output Vital Signs (last 24 hours): Temp Pulse Resp BP Pulse Ox 98 F 96 H 20 124/79 98 12/15/16 19:10 12/15/16 19:10 12/15/16 19:10 12/15/16 19:10 12/14/16 06:00 Intake and Output: 12/15/16 12/16/16 18:59 06:59 Intake Total 1040 360 Output Total 450 Balance 590 360 - Medications Medications: Current Medications Acetaminophen (Tylenol 325mg Tab) 650 mg PO Q4H PRN PRN Reason: Pain, Mild (1-3) Last Admin: 12/12/16 21:13 Dose: 650 mg Aspirin (Ecotrin) 81 mg PO DAILY [facility] Last Admin: 12/15/16 09:11 Dose: 81 mg Azithromycin (Zithromax) 250 mg PO DAILY [facility] PRN Reason: Protocol Last Admin: 12/15/16 13:26 Dose: 250 mg Clopidogrel Bisulfate (Plavix) 75 mg PO DAILY [facility] Ceftriaxone Sodium (Rocephin 1 Gram Ivpb) 1 gm in 100 mls @ 100 mls/hr IVPB DAILY [facility] PRN Reason: Protocol Last Admin: 12/15/16 13:27 Dose: 100 mls/hr Sodium Chloride (Sodium Chloride 0.9%) 1,000 mls @ 100 mls/hr IV .Q10H [facility] Metoprolol Tartrate (Lopressor) 25 mg PO BID [facility] Last Admin: 12/15/16 18:56 Dose: 25 mg Verapamil HCl (Calan Tab) 80 mg PO TID [facility] Last Admin: 12/15/16 18:56 Dose: 80 mg - Labs Labs: 12/15/16 07:00 12/15/16 07:00 PT 12.2 Seconds (9.9-11.8) H 12/12/16 10:30 INR 1.13 (0.93-1.08) H 12/12/16 10:30 APTT 36.4 Seconds (23.7-30.8) H 12/12/16 10:30 - Constitutional Appears: Non-toxic, No Acute Distress - Head Exam Head Exam: NORMAL INSPECTION - ENT Exam ENT Exam: Mucous Membranes Moist - Neck Exam Neck Exam: absent: Lymphadenopathy, Meningismus - Respiratory Exam Respiratory Exam: Decreased Breath Sounds - Cardiovascular Exam Cardiovascular Exam: +S1, +S2 - GI/Abdominal Exam GI & Abdominal Exam: Soft. absent: Tenderness Assessment and Plan - Assessment and Plan (Free Text) Plan: Assessment Severe sepsis with acute renal failure (improving) due to right middle and lower lobe community-acquired pneumonia with associated Strep pneumoniae bacteremia HTN Plan patient on Rocephin and Zithromax and d/c Vancomycin day 3; repeat blood cx negative will continue to monitor clinically
[2016-12-16 06:37] VITALS: O2SAT 99
[2016-12-16 06:41] LABS: ADD MANUAL DIFF? NO
[2016-12-16 06:48] LABS: BASO # 0.04 K/mm3 (0.0-2.0); BASO % 0.6 % (0.0-3.0); EOS # 0.1 (0.0-0.7); EOS % 1.7 % (1.5-5.0); GRAN # 4.22 (1.4-6.5); GRAN % 66.8 % (50.0-68.0); HEMATOCRIT 34.8 % (42.0-52.0); LYMPH # 1.1 (1.2-3.4); LYMPH % 17.9 % (22.0-35.0); MEAN CELL VOLUME 89.2 fL (80.0-105.0); MEAN CORPUSCULAR HEMOGLOBIN 30.8 pg (25.0-35.0); MEAN CORPUSCULAR HGB CONC 34.5 g/dl (31.0-37.0); MEAN PLATELET VOLUME 10.4 fl (7.0-11.0); MONO # 0.8 (0.1-0.6); PLATELET COUNT 157 10^3/uL (120.0-450.0); RED CELL DISTRIBUTION WIDTH 14.2 % (11.5-14.5); WHITE BLOOD COUNT 6.3 10^3/ul (4.5-11.0)
[2016-12-16] MEDS ORDERED: Sodium Chloride 0.9% 1,000 ML IV SCH (07:00)
[2016-12-16 07:40] LABS: BLOOD UREA NITROGEN 23 mg/dL (7-21); CALCIUM 8.9 mg/dL (8.4-10.5); CARBON DIOXIDE 28 mmol/L (21-33); CHLORIDE 104 mmol/L (98-107); GFR AFRICAN-AMERICAN > 60; GLUCOSE,RANDOM 91 mg/dL (70-110); POTASSIUM 4.5 mmol/L (3.6-5.0); SODIUM 137 mmol/L (132-148)
[2016-12-16] MEDS ORDERED: Lidocaine 2% Inj (20ml) ONE (09:28)
[2016-12-16] MEDS ORDERED: Midazolam 2 MG/2 ML VIAL ONE (09:29)
[2016-12-16] MEDS ORDERED: Nitroglycerin 50mg in D5W 50 MG/250 ML BOTTLE IV ONE (09:30)
[2016-12-16] MEDS ORDERED: Iodixanol 320 MG/ML 200 ML BOTTLE IV ONE (09:30)
[2016-12-16] MEDS ORDERED: Bacitracin 500 Units/gm Oint Foilpak UD TOP ONE (10:41)
[2016-12-16] MEDS: cefTRIAXone 1 gm 1 GM/100 ML BAG IVPB SCH (12:02)
[2016-12-16] MEDS ORDERED: Bacitracin 500 Units/gm Oint Foilpak UD ONE (13:40)
[2016-12-16 14:16] VITALS: TEMP 98.2
[2016-12-16 14:23] VITALS: RESP 19
[2016-12-16 14:34] VITALS: BP 131/72; PULSE 92
--- NOTE | 2016-12-16 18:19 | CARD ---
APPROVED REPORT EKG Measurement Heart [id number] <Conclusion> Normal sinus rhythm Right bundle branch block Left anterior fascicular block Bifascicular block Minimal voltage criteria for LVH, may be normal variant Abnormal ECG
--- NOTE | 2016-12-16 18:34 | CARD ---
APPROVED REPORT Procedure(s) performed: Left Heart Catheterization HISTORY The patient is a 66 year-old male with a history of : New onset of SOB and decrease LV Fx, He had Echo in and was told normal admitted with SOB, pneumonia, MR TR and Decreased LV Fx (new) since previous Echo, and New onset of A Fib.. INDICATION The indication(s) include : arrhythmia, dyspnea. CASE TECHNIQUE The patient was brought electively to the Cardiac Catheterization Laboratory in a fasting state and was prepped and draped in a sterile manner. The left wrist was infiltrated with 2% Lidocaine subcutaneous anesthesia. A 6 Fr Glidesheath (Radial) sheath was inserted into the left radial vein without difficulty. Coronary angiography was performed using coronary diagnostic catheters. The left coronary system was accessed and visualized with a Diagnostic ,5 Fr JL 4 catheter. The right coronary system was accessed and visualized with a Diagnostic ,6 Fr AL 1 catheter. The left ventricle was accessed and visualized with a 5 Fr Pigtail 145 (Angled) catheter. Left ventricular/Aortic Valve gradient assessed on pullback. Left ventriculogram was performed in DAILEY projection. Closure device was deployed with a Fr TR Band (Large) without any complications. The patient tolerated the procedure well and there were no complications associated with the procedure. Vessel Analysis The patient's coronary anatomy is left dominant. The left main coronary artery is a large size vessel without significant stenosis. The left main bifurcates to the left anterior descending and circumflex. The left anterior descending artery is a medium size vessel with intimal irregularities and without significant stenosis. The first diagonal branch is a medium size vessel with diffuse calcification noted throughout this vessel and without significant stenosis. There is a 50-60% stenosis in the ostial segment. The circumflex artery is a large size vessel with intimal irregularities and without significant stenosis. The first obtuse marginal branch is a medium size vessel without significant stenosis. The second obtuse marginal branch is a medium size vessel with diffuse calcification noted throughout this vessel and without significant stenosis. The left posterior descending artery is a medium size vessel without significant stenosis. The right coronary artery is a medium size vessel without significant stenosis, non Dominant. Left Ventricle The left ventricle is Borderline in size with Mildly decreased contractility. Non-Ischemic cardiomyopathy. The left ventricular ejection fraction is estimated to be 45%. The left ventricular end diastolic pressure is 15 mmHg. There was no gradient across the aortic valve upon pullback. Conclusion Non-obstruvtive CAD, Lilited to D1 ostial 50-60%. Mildly decreased LV Fx. EF-45%, EDP-15. Recommendations Aggressive Medical TherapyCardiac Risk Reduction Program Monitor LV FX and MR/TR By Echo in 6 months to a year. Continue Verapamil, Beta anthony to control Heart rate and Eliquis for 2-4 weeks if remains in NSR (Hx of PAF). cc; DR. Harris.
--- NOTE | 2016-12-16 19:30 | PN ---
DATE: 12/16/2016 REASON FOR CONSULTATION AND FOLLOWUP: Paroxysmal atrial fibrillation, admitted with pneumonia, CHF, status post cardiac catheterization, nonobstructive coronary artery disease, decreased LV function, e jection fraction 45%. BRIEF CLINICAL HISTORY: A 66-year-old male with past medical history significant for arrhythmia, zi d paroxysmal. Not on anticoagulation, not on any medication, admitted with pneumonia, stress test 5-6 years ago, normal. Recent echo done ____ normal. This time, patient admitted with pneumonia and ne w onset CHF, atrial fibrillation, mitral regurgitation, tricuspid regurgitation, underwent cardiac ca theterization that revealed nonobstructive coronary artery disease, limited to diagonal 1. Ejection fraction 45%. History of recent visit to [place]. Cardiac catheterization was done to rule out coronary artery disease versus nonischemic cardiomyopathy. PHYSICAL EXAMINATION: VITAL SIGNS: Temperature afebrile, heart rate ____, blood pressure 132/72. HEENT: PERRLA. Extraocular muscles intact. NECK: Supple. No carotid bruit. No thyromegaly. CHEST: Clear to auscultation. HEART: S1, S2 regular. ABDOMEN: Soft. EXTREMITIES: Clubbing and cyanosis negative. LABORATORY DATA: WBC 6.3, hemoglobin 12, hematocrit 34.8, platelet count 157. Chemistry shows sodiu m 137, potassium ____, chloride 104, carbon dioxide 28, anion gap of 10, BUN 23, creatinine 0.8. IMPRESSION: New onset congestive heart failure, atrial fibrillation converted to normal sinus, pneum onia, mitral and tricuspid regurgitation, status post-cardiac catheterization, nonobstructive coronar y artery disease. RECOMMENDATION: Continue Eliquis for 4 weeks. Continue verapamil. Continue metoprolol. Discontinue aspirin. Discontinue Plavix. Will reassess LV function in 3-6 months. Continue Eliquis ____ sinus for 4 weeks, then discontinue. Will follow with you. Thank you, Dr. Harris, for providing the opportunity in taking care of the patient. Jesús Pendleton MD cc: [id number] TT: 12/16/2016 19:29:35 Confirmation # [id number] Dictation # [id number]
--- NOTE | 2016-12-17 09:31 | DS ---
The patient is a 66-year-old, seen and examined, lying in bed, anxious to go home. Had cardiac cath done, was found to have nonocclusive coronaries. Otherwise, he is not in any acute shortness of madan th, no nausea, vomiting, no diarrhea. PHYSICAL EXAMINATION: VITAL SIGNS: He is afebrile, pulse 92, respirations 19, blood pressure 131/72. LUNGS: Bilateral fair airflow, no rhonchi or crackle. HEART: S1, S2 audible. ABDOMEN: Soft, nontender, no rebound, no guarding. NEUROLOGIC: He is awake and alert, communicative. Moves all extremities. LABORATORY EXAMINATION: WBCs 6.3, hemoglobin 12, hematocrit 34, platelet of 157. Chemistry: Sodium 137, potassium 4.5, chloride 104, CO2 28, BUN 23, creatinine 0.8, blood sugar of 91. LFTs are withi n normal limits. He had x-ray chest done that showed improvement in right middle lobe pneumonia. ASSESSMENT: 1. Community-acquired bilateral lower lobe pneumonia and right middle lobe pneumonia. 2. New onset of atrial fibrillation. 3. Hypertension. 4. Hyperlipidemia. PLAN: The patient is cleared by cardiology. He is being discharged home on Eliquis 5 mg twice a day and he will be maintained on verapamil 240 daily. He is on Vantin 200 twice a day, Zithromax 250 da anmol for another 7 days. He will be followed as outpatient in my office and Dr. Pendleton's office. Shaggy Harris MD cc: [id number] TT: 12/17/2016 09:30:40 en
== END 2016-12-16 18:17 | disposition home or self-care (01) | DRG 871 ==
LOC: ED 09:40 → ERH 12:15 → 2RNO 13:18 → 2RSO 12-16 10:56
PROVIDERS: ADMIT Internal Medicine; ATTEND Internal Medicine
PROC: 4A023N7 Measurement of Cardiac Sampling and Pressure, Left Heart, Percutaneous Approach (ICD-10-PCS; principal; 2016-12-16)
PROC: B211YZZ Fluoroscopy of Multiple Coronary Arteries using Other Contrast (ICD-10-PCS; 2016-12-16)
PROC: B215YZZ Fluoroscopy of Left Heart using Other Contrast (ICD-10-PCS; 2016-12-16)
DX: A40.3 Sepsis due to Streptococcus pneumoniae (principal); R65.20 Severe sepsis without septic shock; N17.9 Acute kidney failure, unspecified; J18.9 Pneumonia, unspecified organism; I11.0 Hypertensive heart disease with heart failure; I42.9 Cardiomyopathy, unspecified; I50.20 Unspecified systolic (congestive) heart failure; I08.3 Combined rheumatic disorders of mitral, aortic and tricuspid valves; E78.5 Hyperlipidemia, unspecified; E87.6 Hypokalemia; I25.10 Atherosclerotic heart disease of native coronary artery without angina pectoris; I48.0 Paroxysmal atrial fibrillation; R09.02 Hypoxemia; Z79.82 Long term (current) use of aspirin; Z87.891 Personal history of nicotine dependence; Z90.49 Acquired absence of other specified parts of digestive tract; I45.10 Unspecified right bundle-branch block